=== PATIENT | male | born 1970 | race Two or more races ===

== ENCOUNTER 2024-09-23 13:51 | Emergency (ER) | payer BC ==
[2024-09-23] VITALS (8 sets, daily range): BP systolic 166–188; BP diastolic 103–120
[~2024-09-23] VITALS: Ht 170.2 cm; Wt 78.0 kg
[2024-09-23] MEDS ORDERED: BACTRIM DS1 TAB PO (14:59)
[2024-09-23] MEDS ORDERED: CIPROFLOXACN500 MG PO (14:59)
== END 2024-09-23 16:20 | disposition home or self-care (01) | DRG 603 ==
LOC: ED 13:51
DX: L03.031 Cellulitis of right toe (principal); E11.9 Type 2 diabetes mellitus without complications